=== PATIENT | male | born 1960 | race Caucasian/White ===

== ENCOUNTER 2018-01-01 06:30 | Day surgery (SDC) | payer OTHER ==
[~2018-01-01 06:30] MED LIST: Lactated Ringers 1,000 ML IV SCH; ceFAZolin 2 GM in Premix Bag 1 BAG IV SCH
[2018-01-01] MEDS ORDERED: Lidocaine 1% 20 ML MDV ONE (07:13)
--- NOTE | 2018-01-01 07:37 | PCM.PREANE ---
Preanesthetic Assessment - Anesthesia/Transfusion/Family Hx Anesthesia History: Prior Anesthesia Without Reaction Family History of Anesthesia Reaction: No Transfusion History: Prior Transfusion Without Reaction Intubation History: Unknown - Review of Systems General: No Symptoms Pulmonary: No Symptoms Cardiovascular: No Symptoms Gastrointestinal: No Symptoms Neurological: No Symptoms Other: Reports: None - Physical Assessment O2 Sat by Pulse Oximetry: 96 Respiratory Rate: 16 Vital Signs: Last Vital Signs Temp 36.2 C 01/01/18 06:52 Pulse 80 01/01/18 06:52 Resp 16 01/01/18 06:52 BP 136/99 H 01/01/18 06:52 Pulse Ox 96 01/01/18 06:52 Height: 1.88 m Weight: 106.594 kg ASA Class: 2 Mental Status: Alert & Oriented x3 Airway Class: Mallampati = 2 Dentition: Reports: Normal Dentition (bonded front upper incisor x1) Thyro-Mental Finger Breadths: 3 Mouth Opening Finger Breadths: 3 ROM/Head Extension: Full Lungs: Clear to Auscultation, Normal Respiratory Effort Cardiovascular: Regular Rate, Regular Rhythm - Allergies Allergies/Adverse Reactions: Allergies Allergy/AdvReac Type Severity Reaction Status Date / Time tetanus toxoid, adsorbed Allergy Fever Verified 12/27/17 09:54 - Blood Blood Available: No - Anesthesia Plan Pre-Op Medication Ordered: None - Acknowledgements Anesthesia Type Planned: General Anesthesia Pt an Appropriate Candidate for the Planned Anesthesia: Yes Alternatives and Risks of Anesthesia Discussed w Pt/Guardian: Yes Pt/Guardian Understands and Agrees with Anesthesia Plan: Yes PreAnesthesia Questionnaire - Past Health History Medical/Surgical History: Denies Medical/Surgical History HEENT History: Reports: None Gastrointestinal History: Reports: Chronic Diarrhea, GERD, Other (See Below) Other Gastrointestinal History: takes loperamide daily Genitourinary History: Reports: Other (See Below) (s/p cystectomy with urinary ileal constructed bladder) Musculoskeletal History: Reports: Fracture Other Musculoskeletal History: fx nose and toes Neurological History: Reports: None Psychiatric History: Reports: None Endocrine/Metabolic History: Reports: Obesity/BMI 30+ Hematologic History: Reports: Blood Transfusion(s) Other Hematologic History: had transfusion with prostate and bladder surgery Immunologic History: Reports: None Oncologic (Cancer) History: Reports: Bladder, Prostate Dermatologic History: Reports: None - Infectious Disease History Infectious Disease History: Reports: Chicken Pox, Mumps - Past Surgical History Head Surgeries/Procedures: Reports: None HEENT Surgical History: Reports: Tonsillectomy GI Surgical History: Reports: Colon, Other (See Below) Other GI Surgeries/Procedures: "took part of my small intestines during prostate and bladder surgery to make ankit-bladder" Male Surgical History: Reports: Cystectomy, Prostatectomy, Other (See Below) Other Male Surgeries/Procedures: ankit-bladder Musculoskeletal Surgical History: Reports: Arthroscopic Knee Other Musculoskeletal Surgeries/Procedures:: hx rt knee arthroscopy Oncologic Surgical History: Reports: Other (See Below) Other Oncologic Surgeries/Procedures: cancer in remission, hx of jameson cath placement and removal - SUBSTANCE USE Smoking Status *Q: Current Every Day Smoker Tobacco Use Within Last Twelve Months: Cigarettes Second Hand Smoke Exposure: No Days Per Week of Alcohol Use: 7 Number of Drinks Per Day: 2 Total Drinks Per Week: 14 Recreational Drug Use History: No Recreational Drug Type: Reports: Cocaine, Marijuana/Hashish, Methamphetamine - HOME MEDS Home Medications: Home Meds Omeprazole Magnesium [Prilosec Otc] 20 mg PO DAILY 01/03/17 [History] Ibuprofen 1 tab PO ASDIRECTED PRN 12/27/17 [History] Loperamide [Imodium AD] 1 tab PO DAILY 12/27/17 [History] - CURRENT (IN HOUSE) MEDS Current Meds: Current Medications Hydrocodone Bitart/Acetaminophen ([place] 325-5 Mg) 1 - 2 tab PO Q4H PRN PRN Reason: Pain Cefazolin Sodium/Dextrose 2 gm (/ Premix) 50 mls @ 100 mls/hr IV ONCALL ADALID Lactated Ringer's (Ringers, Lactated) 1,000 mls @ 100 mls/hr IV ASDIRECTED [facility] Last Admin: 01/01/18 06:57 Dose: 100 mls/hr Discontinued Medications Lidocaine HCl (Xylocaine 1%) Confirm Administered Dose 20 ml .ROUTE .STK-MED ONE Stop: 01/01/18 07:14
[2018-01-01] MEDS ORDERED: Midazolam 1 MG/ML 2 ML SDV ONE (07:38)
[2018-01-01] MEDS ORDERED: Propofol 200 MG/20 ML SDV ONE (07:38)
[2018-01-01] MEDS ORDERED: Ondansetron 4 MG/2 ML SDV ONE (07:38)
[2018-01-01] MEDS ORDERED: Lidocaine 2% 5 ML SDV ONE (07:38)
[2018-01-01] MEDS ORDERED: fentaNYL 100 MCG/2 ML SDV ONE ×2 (07:38→08:26)
[2018-01-01] MEDS ORDERED: ceFAZolin 1 GM Vial ONE (07:52)
[2018-01-01] MEDS ORDERED: Acetaminophen/HYDROcodone 325-5 MG Tab PO PRN (08:00)
[2018-01-01] MEDS ORDERED: Ketorolac 30 MG/ML SDV ONE (08:19)
[2018-01-01] MEDS ORDERED: fentaNYL 100 MCG/2 ML SDV IVPUSH PRN (08:38)
--- NOTE | 2018-01-01 09:10 | PCM.OPNOTE ---
- General Post-Op/Procedure Note Date of Surgery/Procedure: 01/01/18 Operative Procedure(s): L knee scope with chondroplasty of MFC and trochlear groove Post-Op Diagnosis: DJD left knee Anesthesia Technique: General LMA Primary Surgeon: Dina Reddy Parachute Packer: Rad Dugan in mLs: 5 Condition: Good Free Text/Narrative:: tt=21 min #[id number]
--- NOTE | 2018-01-01 09:16 | PCM.POSTAN ---
POST ANESTHESIA ASSESSMENT - MENTAL STATUS Mental Status: Alert, Oriented - RESPIRATORY Respiratory Status: Respiratory Rate WNL, Airway Patent, O2 Saturation Stable - CARDIOVASCULAR CV Status: Pulse Rate WNL, Blood Pressure Stable - GASTROINTESTINAL GI Status: No Symptoms - POST OP HYDRATION Hydration Status: Adequate & Stable
[2018-01-01 09:37] VITALS: BP 124/70
--- NOTE | 2018-01-01 10:07 | PCM48HPAN ---
Post Anesthesia Note - EVALUATION WITHIN 48HRS OF ANESTHETIC Vital Signs in Normal Range: Yes Patient Participated in Evaluation: Yes Respiratory Function Stable: Yes Airway Patent: Yes Cardiovascular Function Stable: Yes Hydration Status Stable: Yes Pain Control Satisfactory: Yes Nausea and Vomiting Control Satisfactory: Yes Mental Status Recovered: Yes Resp Rate: 14
--- NOTE | 2018-01-02 11:14 | OR ---
SURGEON: Dina Reddy MD DATE OF PROCEDURE: 01/01/2018 PREOPERATIVE DIAGNOSIS: Left knee pain. POSTOPERATIVE DIAGNOSIS: Left knee degenerative joint disease. PROCEDURE: Left knee arthroscopy with chondroplasty of the medial femoral condyle and trochlear groove. CYLINDER LOADER: Rad Hernandez MD, PGY3. ANESTHESIA: General. ESTIMATED BLOOD LOSS: 5 mL. TOURNIQUET TIME: 21 minutes. COMPLICATIONS: None. DVT PROPHYLAXIS: Not indicated. IMPLANTS USED: None. BRIEF HISTORY: Pola is a 57-year-old male, who has had complaint of progressive left knee pain. He had failed conservative treatment. Due to his lack of response to conservative treatment, I did recommend surgical intervention. The risks and goals of procedure were discussed with the patient and were documented preoperatively. He agreed to proceed. DESCRIPTION OF PROCEDURE: The patient was properly identified and brought to the operating room. He was transferred from the OR cart and placed on the operating table in supine position. General anesthesia was administered. After adequate anesthesia was obtained, a well-padded tourniquet was applied to the left lower extremity. The left lower extremity was then prepped in standard fashion using ChloraPrep solution. It was then sterilely draped. A time-out was performed to ensure correct site and procedure. Preoperative antibiotics were given. The surgical site had been marked preoperatively. An Esmarch was used to exsanguinate the left lower extremity, and the tourniquet was inflated to 250 mmHg. A lateral portal arthrotomy was established. Blunt trocar and cannula were introduced into the suprapatellar pouch. Camera, inflow, and outflow were assembled. The suprapatellar pouch showed no signs of synovitis. The patella was then visualized. He had a large area along the central portion of the patella consistent with grade 4 chondromalacia. An area of degenerative changes was also noted along the trochlear groove; however, this was difficult to evaluate due to hypertrophy of the fat pad. I then extended down the lateral and medial gutter. No loose bodies were identified. I then entered the medial compartment. A medial portal arthrotomy was established. Blunt probe was inserted. The meniscus was extensively probed. I did not find any tears. The medial tibial plateau showed diffuse grade 2 chondromalacia. The medial femoral condyle had a large area with a loose cartilage of his large area degenerative change with a cartilage flap, which appeared to be unstable. A shaver was used to resect this back to a stable remnant. The defect was again probed. It measured approximately 10 mm x 15 mm and appeared to involve the weightbearing surface of the medial femoral condyle. Grade 3 chondromalacia was noted in this area. I then entered the notch. Both the ACL and PCL were visualized and probed and found to be intact. I then entered the lateral compartment. The joint surfaces showed softening and minor degenerative changes consistent with grade 2 chondromalacia. The meniscus was extensively probed and was found to be intact. I re-entered the patellofemoral joint. A portion of the fat pad was resected for visualization. It appeared to be causing some impingement within the joint as well. The chondral surfaces were then inspected. The patella degenerative changes involved the superior portion of the patella and showed grade 3 to grade 4 chondromalacia. The trochlear groove showed a central area measuring approximately 10 mm x 10 mm. The edges were stable and there did appear to be some instability of the chondral surface. A chondroplasty was performed using the shaver. The area was again probed and was found to be stable. No further impingement of the fat pad was noted. Instruments were then removed from the knee. The portal sites were closed with 3-0 nylon. 1% Lidocaine was injected along the portal tracts. Xeroform gauze was placed over the wound, and a bulky dressing was applied. The tourniquet was then deflated. He was awakened from his anesthetic and transferred back to the operating room cart. He was brought to recovery room in stable condition. All needle and sponge counts were correct. JAVIER / VERA /[id number]
== END 2018-01-01 09:50 | disposition home or self-care (01) ==
LOC: MW.SDS 06:30
PROVIDERS: ATTEND Orthopaedic Surgery
DX: M17.12 Unilateral primary osteoarthritis, left knee (principal); K21.9 Gastro-esophageal reflux disease without esophagitis; E66.9 Obesity, unspecified; F17.210 Nicotine dependence, cigarettes, uncomplicated; M22.42 Chondromalacia patellae, left knee; Z79.899 Other long term (current) drug therapy; Z88.7 Allergy status to serum and vaccine; Z68.30 Body mass index [BMI] 30.0-30.9, adult; Z98.890 Other specified postprocedural states; Z90.89 Acquired absence of other organs; Z85.51 Personal history of malignant neoplasm of bladder; Z90.49 Acquired absence of other specified parts of digestive tract
CPT/HCPCS: 29877; 88304; J0690; J1885; J2250; J2405; J3010; J7120; 01400; J2704